=== PATIENT | female | born 1990 | race Caucasian/White ===

== ENCOUNTER 2021-12-11 20:42 | Emergency (ER) | payer MEDICAID ==
[~2021-12-11] VITALS: Ht 165.1 cm; Wt 61.7 kg
[2021-12-11 21:10] VITALS: BP 110/56
--- NOTE | 2021-12-11 21:14 | NUR ---
WALKED IN C/O ABDOMINAL PAIN SINCE THURSDAY, +N/V/D. PT STATES SHE TOOK PEPTO BISMOL TODAY WITHOUT RELIEF. DENIES SOB, CP. DENIES DYSURIA PMH NONE
[2021-12-11 22:13] LABS: BASOPHILS % (AUTO) 0.4 % (0.0-2.0); EOSINOPHILS # (AUTO) 0.1 K/uL (0-0.4); EOSINOPHILS % (AUTO) 1.1 % (0.0-4.0); HEMATOCRIT 38.5 % (36-48); HEMOGLOBIN 12.9 g/dL (12.0-16.0); LYMPHOCYTES # (AUTO) 0.9 K/uL (2.5-16.5); LYMPHOCYTES % (AUTO) 15.7 % (20.5-51.1); MEAN CORPUSCULAR HEMOGLOBIN 29 pg (27-31); MEAN CORPUSCULAR HGB CONC 34 g/dL (33-37); MEAN CORPUSCULAR VOLUME 86.4 fL (80-94); MONOCYTES # (AUTO) 0.5 K/uL (0.8-1.0); MONOCYTES % (AUTO) 8.6 % (1.7-9.3); NEUTROPHILS # (AUTO) 4.3 K/uL (1.8-7.7); NEUTROPHILS % (AUTO) 74.2 % (42.2-75.2); PLATELET COUNT (AUTO) 209 K/uL (140-450); RED BLOOD CELL COUNT(AUTO) 4.45 MIL/uL (4.20-5.40); RED CELL DISTRIBUTION WIDTH 13.5 % (11.6-13.7); WHITE BLOOD COUNT (AUTO) 5.8 K/uL (4.8-10.8)
[2021-12-11 22:19] LABS: APPEARANCE,URINE CLEAR (CLEAR); BILIRUBIN,URINE NEGATIVE (NEGATIVE); BLOOD, URINE NEGATIVE (NEGATIVE); COLOR,URINE YELLOW (YELLOW); LEUKOCYTE ESTERASE ,URINE NEGATIVE (NEGATIVE); NITRITE, URINE NEGATIVE (NEGATIVE); UGLUCOSE NEGATIVE (NEGATIVE)
[2021-12-11 22:36] LABS: ALBUMIN 3.5 g/dL (3.4-5.0); ANION GAP 11.1 (8-16); CARBON DIOXIDE 26.7 mmol/L (21-32); CREATININE 0.8 mg/dL (0.6-1.3); POTASSIUM 3.8 mmol/L (3.5-5.1); TOTAL BILIRUBIN 0.5 mg/dL (0.0-1.0)
[2021-12-11] MEDS ORDERED: ONDANSETRON 4 MG ODT PO ONE (23:20)
[2021-12-11] MEDS ORDERED: KETOROLAC 30 MG/ML VIAL IM ONE (23:20)
[2021-12-11] MEDS ORDERED: DICYCLOMINE HCL LIQUID 20 MG, ALUMINUM HYD/MAG/SIMETHICONE 30 ML, LIDOCAINE VISCOUS 2% ... PO ONE ×3 (23:20)
[2021-12-11] MEDS ORDERED: PANTOPRAZOLE 40 MG INJ VIAL IVP ONE (23:25)
[2021-12-11] MEDS ORDERED: KETOROLAC 30 MG/ML VIAL IVP ONE (23:25)
[2021-12-11] MEDS ORDERED: ONDANSETRON 4 MG/2 ML VIAL IVP ONE (23:25)
[2021-12-11] MEDS ORDERED: NACL 0.9% 1,000 ML IV ONE (23:25)
--- NOTE | 2021-12-11 23:49 | NUR ---
PT AMB TO BED 07.
--- NOTE | 2021-12-11 23:53 | NUR ---
Note odette in EDM - 12/11/21 at 2354 by [id number] RESPIRATORY AT BEDSIDE AND PLACES PT ON SIMPLE MASK PT HAS PNEUMOTHORAX TO RIGHT SIDE. VSS. AWAITING NEW ORDERS AT THIS TIME.
--- NOTE | 2021-12-11 23:55 | NUR ---
PT AMBULATED TO ED 7, PT C/O UPPER ABD PAIN SINCE THURSDAY, PT C/O THAT PAIN WAS SEVERE TODAY, VOMIT X1 TODAY WITH DIARRHEA. 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 DENIES ANY MEDICAL HISTORY.
--- NOTE | 2021-12-12 00:04 | NUR ---
Ultrasound at bedside.
[2021-12-12] MEDS ORDERED: PANT40EC PO (00:26)
[2021-12-12 00:47] VITALS: BP 107/56
--- NOTE | 2021-12-12 00:47 | NUR ---
Patient discharged with v/s stable. Written and verbal after care instructions given and explained. Patient verbalized understanding. Ambulatory with steady gait. All questions addressed prior to discharge. Advised to follow up with PMD.
== END 2021-12-12 00:47 | disposition home or self-care (01) ==
LOC: MED 20:42
DX: K80.20 Calculus of gallbladder without cholecystitis without obstruction (principal); R11.2 Nausea with vomiting, unspecified; R19.7 Diarrhea, unspecified; Z79.899 Other long term (current) drug therapy
CPT/HCPCS: 36415; 76705; 80053; 81003; 81025; 83690; 85025; 96361; 96374; 96375; 99284; C9113; J1885; J2405; J7030; Q0092

== ENCOUNTER 2021-12-19 09:04 | Emergency (ER) | payer MEDICAID ==
[~2021-12-19] VITALS: Ht 157.5 cm; Wt 63.5 kg
[~2021-12-19 09:04] MED LIST: PANT40EC PO
[2021-12-19 09:10] VITALS: BP 104/60
[2021-12-19] MEDS ORDERED: LIDOCAINE MPF 1% 10 MG/ML VIAL INJ ONE (10:35)
--- NOTE | 2021-12-19 11:00 | NUR ---
PATIENT PRESENTS TO ED WITH BILATERAL TOE PAIN FROM INGROWN NAILS, NO OTHER COMPLAINTS. PATIENT DENIES MEDICAL HX OR ALLERGIES. MADE COMFORTABLE IN BED. WILL CONTINUE TO MONITOR
[2021-12-19] MEDS ORDERED: NAPR-1704 PO (11:47)
[2021-12-19] MEDS ORDERED: CEPH-588 PO (11:47)
--- NOTE | 2021-12-19 12:00 | NUR ---
NON ADHERENT APPLIED TO R BIG TOE. + CMS
[2021-12-19 12:04] VITALS: BP 101/59
--- NOTE | 2021-12-19 12:05 | NUR ---
PATIENT AMBULATED OUT OF ED WITH NO INCIDENT. LUZ VERBALIZED UNDERSTANDING OF DISCHARGE TEACHINGS
== END 2021-12-19 12:04 | disposition home or self-care (01) ==
LOC: MED 09:04
DX: L60.0 Ingrowing nail (principal); Z79.899 Other long term (current) drug therapy
CPT/HCPCS: 11730; 99284; J2001

== ENCOUNTER 2022-05-31 18:21 | Emergency (ER) | payer MEDICAID ==
[~2022-05-31] VITALS: Ht 154.9 cm; Wt 76.7 kg
[~2022-05-31 18:21] MED LIST changes: +CEPH-588 PO; +NAPR-1704 PO
[2022-05-31 18:35] VITALS: BP 121/50
--- NOTE | 2022-05-31 18:40 | NUR ---
32/F WALKED IN C/O BODY PAIN X 4 DAYS S/P GETTING TDAP AND MATOUX TEST ON THURSDAY. AFEBRILE AT TRIAGE. AAO4, AMBULATORY, NO ACUTE DISTRESS NOTED. NKA PMH: DENIES
[2022-05-31] MEDS ORDERED: KETOROLAC 60 MG/2 ML VIAL IM ONE (19:05)
--- NOTE | 2022-05-31 19:30 | NUR ---
ERMD evaluating pt.
[2022-05-31] MEDS ORDERED: diphenhydrAMINE 50 MG CAP PO ONE (19:45)
[2022-05-31] MEDS ORDERED: PRED20TA5 PO (19:46)
[2022-05-31] MEDS ORDERED: DIPH25TA53 PO (19:46)
[2022-05-31 20:03] VITALS: BP 121/50
--- NOTE | 2022-05-31 20:03 | NUR ---
Patient discharged with v/s stable. Written and verbal after care instructions given and explained. New rx benadryl and prednisone. Patient verbalized understanding. Ambulatory with steady gait. All questions addressed prior to discharge. Advised to follow up with PMD.
== END 2022-05-31 20:03 | disposition home or self-care (01) ==
LOC: MED 18:21
DX: R21 Rash and other nonspecific skin eruption (principal); T78.40XA Allergy, unspecified, initial encounter; Z79.899 Other long term (current) drug therapy; Z90.49 Acquired absence of other specified parts of digestive tract; X58.XXXA Exposure to other specified factors, initial encounter
CPT/HCPCS: 96372; 99283; J1885; Q0163

== ENCOUNTER 2022-12-20 09:18 | Emergency (ER) | payer MEDICAID, OTHER ==
[~2022-12-20] VITALS: Ht 162.6 cm; Wt 74.8 kg
[~2022-12-20 09:18] MED LIST changes: +DIPH25TA53 PO; +PRED20TA5 PO
[2022-12-20 09:24] VITALS: BP 104/60; PULSE 63; RESP 18; TEMP 98; O2SAT 99
[2022-12-20] MEDS ORDERED: ACETAMINOPHEN EXTRA STRENGTH 500 MG TAB PO ONE (09:45)
[2022-12-20] MEDS ORDERED: KETOROLAC 30 MG/ML VIAL IM ONE (09:45)
[2022-12-20] MEDS ORDERED: LIDOCAINE/EPI MPF 1%1:200000 30 ML VIAL INJ ONE (09:45)
[2022-12-20 10:21] VITALS: BP 104/60; PULSE 63; RESP 18; TEMP 98
[2022-12-20 10:29] VITALS: O2SAT 99
[2022-12-20] MEDS ORDERED: BACITRACIN OINT 500 UNITS/GM PKT TP ONE (11:05)
== END 2022-12-20 11:15 | disposition home or self-care (01) ==
LOC: MED 09:18
DX: L60.0 Ingrowing nail (principal); Z79.899 Other long term (current) drug therapy; Z79.2 Long term (current) use of antibiotics; Z88.7 Allergy status to serum and vaccine
CPT/HCPCS: 11730; 96372; 99284; J1885; J2001

== ENCOUNTER 2023-06-10 15:45 | Emergency (ER) | payer OTHER ==
[~2023-06-10] VITALS: Ht 165.1 cm; Wt 81.6 kg
[2023-06-10 15:51] VITALS: BP 102/63; PULSE 59; RESP 17; TEMP 97; O2SAT 99
[2023-06-10] MEDS: LIDOCAINE MPF 1% 10 MG/ML VIAL INJ ONE (16:16)
[2023-06-10] MEDS ORDERED: BACI-418 TP (16:49)
[2023-06-10] MEDS ORDERED: IBUP-2213 PO (16:49)
[2023-06-10 16:57] VITALS: BP 112/62; PULSE 62; RESP 16; TEMP 98; O2SAT 99
== END 2023-06-10 16:57 | disposition home or self-care (01) ==
LOC: MED 15:45
DX: S61.211A Laceration without foreign body of left index finger without damage to nail, initial encounter (principal); Z79.899 Other long term (current) drug therapy; W26.0XXA Contact with knife, initial encounter; Y93.89 Activity, other specified; Y92.89 Other specified places as the place of occurrence of the external cause; Y99.8 Other external cause status
CPT/HCPCS: 12001; 99282; J2001